=== PATIENT | female | born 1990 | race Caucasian/White ===

== ENCOUNTER 2018-11-01 06:35 | Emergency (ER) | payer MEDICAID, OTHER ==
[~2018-11-01] VITALS: Ht 157.5 cm; Wt 43.5 kg
[2018-11-01 06:51] VITALS: BP 119/79
--- NOTE | 2018-11-01 07:00 | NUR ---
28 YO F BIB SELF AND BOYFRIEND C/O LEFT SIDE SHOULDER PAIN THAT RADIATES INTO UNDER LEFT BREAST AND UP INTO LEFT SIDE NECK. DENIES SOB, N/V. PT STATES PAIN STARTED X 2 WEEKS AGO AND HAS GRADUALLY GOTTEN WORSE. SHE STATES IT IS 5/10 AT THIS TIME AND IS SHARP, THROBBING IN NATURE. DENIES RECENT TRAUMA/INJURY. -- PT AWAKE, ALERT, CALM, COOPERATIVE. ANSWERING QUESTIONS APPROPRIATELY. BEHAVIOR APPROPRIATE. -- SKIN PINK, WARM, DRY. BREATHING EVEN, UNLABORED. PMH-- DENIES RX-- DENIES
--- NOTE | 2018-11-01 07:15 | NUR ---
IS EVALUATING PT AT BEDSIDE.
--- NOTE | 2018-11-01 07:15 | NUR ---
REPORT GIVEN TO NA ESPINOZA.
--- NOTE | 2018-11-01 07:16 | NUR ---
REPORT RECEIVED FROM NA ROSE.
--- NOTE | 2018-11-01 07:45 | NUR ---
IS EDUCATING PT AT BEDSIDE.
[2018-11-01 07:48] VITALS: BP 102/61
--- NOTE | 2018-11-01 07:48 | NUR ---
Patient discharged with v/s stable. Written and verbal after care instructions given and explained. Patient alert, oriented and verbalized understanding of instructions. Ambulatory with steady gait. All questions addressed prior to discharge. Patient advised to follow up with PMD. Rx of Ibuprofen and Valium given. Patient educated on indication of medication including possible reaction and side effects. Opportunity to ask questions provided and answered.
== END 2018-11-01 07:48 | disposition home or self-care (01) ==
LOC: MED 06:35
DX: M25.512 Pain in left shoulder (principal)
CPT/HCPCS: 81002; 81025; 93005; 99283

== ENCOUNTER 2019-01-13 10:19 | Emergency (ER) | payer OTHER ==
[~2019-01-13] VITALS: Ht 157.5 cm; Wt 42.8 kg
[2019-01-13 10:25] VITALS: BP 124/92
--- NOTE | 2019-01-13 10:28 | NUR ---
PT AMB TO BED 9 WITH STEADY GAIT
--- NOTE | 2019-01-13 10:32 | NUR ---
C/O COLD SYMPTOMS AND FEVER X 3 DAYS. SORE THROAT AND CP FROM DRY COUGH, PAIN 4/10. AFEBRILE AT THIS TIME. HAS BEEN TAKING NYQUIL AND DAYQUIL TO RELIEVE SYMPTOMS. AA0X4. VSS. BED IS DOWN, LOCKED, BED RAIL X 1, ERMD TO SEE PT. [facility]- DENIES Addendum: 01/13/19 at 1123 by [email or web address] BILATERAL EAR PAIN /10. BREATH SOUNDS CLEAR BILATERALLY. PT DENIES DIARRHEA BUT REPORTS HAVING DIFFICULTY KEEPING LIQUIDS DOWN. DENIES BLOOD IN EMESIS. Addendum: 01/13/19 at 1150 by [email or web address] PRODUCTIVE COUGH
--- NOTE | 2019-01-13 10:52 | NUR ---
DR RODRIGUEZ AT BEDSIDE
--- NOTE | 2019-01-13 11:14 | NUR ---
XRAY AT BEDSIDE
[2019-01-13 11:46] VITALS: BP 121/87
--- NOTE | 2019-01-13 11:46 | NUR ---
Patient discharged with v/s stable. Written and verbal after care instructions given and explained. Patient alert, oriented and verbalized understanding of instructions. Ambulatory with steady gait. All questions addressed prior to discharge. ID band removed. Patient advised to follow up with PMD. Rx of TRENTON TURNER given. Patient educated on indication of medication including possible reaction and side effects. Opportunity to ask questions provided and answered.
== END 2019-01-13 11:46 | disposition home or self-care (01) ==
LOC: MED 10:19
DX: J20.9 Acute bronchitis, unspecified (principal)
CPT/HCPCS: 71045; 99283; Q0092

== ENCOUNTER 2019-01-15 17:06 | Emergency (ER) | payer OTHER ==
[~2019-01-15] VITALS: Ht 157.5 cm; Wt 43.1 kg
[2019-01-15 17:16] VITALS: BP 128/85
--- NOTE | 2019-01-15 17:18 | NUR ---
PT AMB TO BED 6 WITH STEADY GAIT AND PLACED ON MONITOR
--- NOTE | 2019-01-15 17:20 | NUR ---
C/O NON-RADIATING, STERNAL CHEST TIGHTNESS AFTER TAKING VIRTUSSIN AND PSEUDEPHEDRINE HYDROCHLORIDE FOR BRONCHITIS. TAKEN APPROX 1 HOUR AGO. PAIN 11/28. DENIES N/V/D. DENIES SOB, NUMBNESS, OR TINGLING. AA0X4. PT TACHY AT 125. BED IS DOWN, LOCKED, EBD RAIL X 1, ERMD TO SEE PT. [facility]- DENIES
--- NOTE | 2019-01-15 17:40 | NUR ---
DR MEDINA AT BEDSIDE
[2019-01-15] MEDS ORDERED: predniSONE 20 MG TAB PO ONE (17:50)
[2019-01-15] MEDS ORDERED: IPRATROPIUM 0.02% 0.5 MG/2.5 ML NEBU INH ONE (17:50)
[2019-01-15] MEDS ORDERED: ALBUTEROL 0.083% 2.5 MG/3 ML NEBU INH ONE (17:50)
--- NOTE | 2019-01-15 18:08 | NUR ---
RT AT BED 9, INFORMED RT THAT PT HAS BREATHING TX DUE.
--- NOTE | 2019-01-15 18:19 | NUR ---
RT AT BEDSIDE
[2019-01-15 18:50] VITALS: BP 119/77
--- NOTE | 2019-01-15 18:50 | NUR ---
Patient discharged with v/s stable. Written and verbal after care instructions given and explained. Patient alert, oriented and verbalized understanding of instructions. Ambulatory with steady gait WITH MOTHER. All questions addressed prior to discharge. ID band removed. Patient advised to follow up with PMD. Rx of ALBUTEROL, AEROCHAMBER WITH MASK, PREDNISONE given. Patient educated on indication of medication including possible reaction and side effects. Opportunity to ask questions provided and answered. PT INSTRUCTED TO STOP TAKING PRESCRIBED MEDICINES THAT CAUSED REACTION
== END 2019-01-15 18:50 | disposition home or self-care (01) ==
LOC: MED 17:06
DX: J40 Bronchitis, not specified as acute or chronic (principal)
CPT/HCPCS: 94640; 94760; 99283; J7512; J7613; J7644

== ENCOUNTER 2019-08-11 21:48 | Emergency (ER) | payer OTHER ==
[~2019-08-11] VITALS: Ht 157.5 cm; Wt 45.4 kg
[2019-08-11 21:52] VITALS: BP 128/96
--- NOTE | 2019-08-11 21:55 | NUR ---
29 Y/O FEMALE C/O PT TOOK 6 ALBUTEROL INHALATIONS THIS MORNING AND THEN TOOK 4 X 1 HR AGO AND FEELS SOB AND ANXIOUS. PT DENIES ANY TRAUMA. PT CONNECTED TO MONITOR AND SLIGHTLY TACHYPNEIC. DENIES N/V/D; SKIN IS PINK/WARM/DRY; AAOX4 WITH EVEN AND STEADY GAIT; PT DENIES ANY FEVER, CP, OR COUGH AT THIS TIME; PATIENT STATES PAIN OF 0/10 AT THIS TIME; VSS; PATIENT POSITIONED FOR COMFORT; HOB ELEVATED; BEDRAILS UP X1; BED DOWN AND WHEELS LOCKED. MEDICAL HX: ASTHMA ALLERGY: CODEINE
[2019-08-11] MEDS ORDERED: ALBUTEROL SULFATE/IPRATROPIU 3 ML SOL IH ONE (22:05)
[2019-08-11] MEDS ORDERED: predniSONE 20 MG TAB PO ONE (22:05)
[2019-08-11] MEDS ORDERED: LORazepam 1 MG TAB PO ONE (22:05)
--- NOTE | 2019-08-11 22:17 | NUR ---
RT AT BEDSIDE.
[2019-08-11 22:38] VITALS: BP 128/96
== END 2019-08-11 22:30 | disposition home or self-care (01) ==
LOC: MED 21:48
DX: J45.909 Unspecified asthma, uncomplicated (principal); F41.9 Anxiety disorder, unspecified; Z88.5 Allergy status to narcotic agent
CPT/HCPCS: 94640; 99283; J7512